=== PATIENT | female | born 1995 | race Caucasian/White ===

== ENCOUNTER → 2018-12-28 | Outpatient (CLI) | payer BC ==
[2018-12-28 15:37] LABS: EOS # 0.2 (0.04-0.40); EOS % 3.1 % (1.0-5.0); HEMATOCRIT 41.1 % (37.0-47.0); HEMOGLOBIN 13.4 g/dL (12.5-16.0); LYMPH# 1.5 (1.50-4.00); MEAN CELL VOLUME 93 fl (78-100); MEAN CORPUSCULAR HEMOGLOBIN 30 pg (27-31); MEAN CORPUSCULAR HGB CONC 33 g/dL (33-37); MEAN PLATELET VOLUME 9.7 fl (7.4-10.4); MONO # 0.3 (0.20-0.80); NEU # 3.4 (1.40-6.50); PLATELET COUNT 317 K/mm3 (130-400); RED BLOOD COUNT 4.43 M/mm3 (4.10-5.30); RED CELL DISTRIBUTION WIDTH 12.9 % (11.5-14.5); WHITE BLOOD COUNT 5.4 K/mm3 (4.8-10.8)
[2018-12-28 15:55] LABS: ALBUMIN 4.6 g/dL (3.5-5.0); POTASSIUM 4.4 mmol/L (3.5-5.1)
[2018-12-28 16:00] LABS: TOTAL BILIRUBIN 0.8 mg/dL (0.2-1.2)
[2018-12-28 16:03] LABS: CALCIUM 9.7 mg/dL (8.3-10.5)
[2018-12-28 16:04] LABS: TOTAL PROTEIN 7.3 g/dL (6.4-8.3)
== END ==
LOC: LAB 15:27
PROVIDERS: Internal Medicine
DX: Z00.00 Encounter for general adult medical examination without abnormal findings (principal)

== ENCOUNTER → 2019-01-28 | Outpatient (CLI) | payer BC | LOC: RAD 14:03 | DX: M79.671 Pain in right foot (principal); M79.672 Pain in left foot ==

== ENCOUNTER → 2019-02-09 | Outpatient (CLI) | payer BC | LOC: LAB 13:46 | DX: Z01.419 Encounter for gynecological examination (general) (routine) without abnormal findings (principal); N89.8 Other specified noninflammatory disorders of vagina ==

== ENCOUNTER → 2019-08-02 | Outpatient (CLI) | payer BC | LOC: RAD 08:15 | DX: N60.02 Solitary cyst of left breast (principal) ==

== ENCOUNTER → 2020-01-27 | Outpatient (CLI) | payer BC | LOC: RAD 14:38 | DX: M71.331 Other bursal cyst, right wrist (principal) ==

== ENCOUNTER → 2020-02-08 | Outpatient (CLI) | payer BC | LOC: RAD 07:45 | DX: M19.032 Primary osteoarthritis, left wrist (principal) ==

== ENCOUNTER → 2020-12-08 | Outpatient (CLI) | payer BC ==
[2020-12-08 14:48] LABS: BASO # 0.03 (0.02-0.10); EOS # 0.18 (0.04-0.40); EOS % 3.4 % (1.0-5.0); HEMATOCRIT 39.1 % (37.0-47.0); HEMOGLOBIN 13.3 g/dL (12.5-16.0); LYMPH# 1.68 (1.50-4.00); MEAN CELL VOLUME 92 fl (78-100); MEAN CORPUSCULAR HEMOGLOBIN 31 pg (27-31); MEAN CORPUSCULAR HGB CONC 34 g/dL (33-37); MEAN PLATELET VOLUME 9.2 fl (7.4-10.4); MONO # 0.41 (0.20-0.80); NEU # 2.92 (1.40-6.50); PLATELET COUNT 300 K/mm3 (130-400); RED BLOOD COUNT 4.24 M/mm3 (4.10-5.30); RED CELL DISTRIBUTION WIDTH 12.9 % (11.5-14.5); WHITE BLOOD COUNT 5.2 K/mm3 (4.8-10.8)
== END ==
LOC: LAB 14:37
PROVIDERS: Internal Medicine
DX: Z00.00 Encounter for general adult medical examination without abnormal findings (principal)

== ENCOUNTER → 2021-10-22 | Outpatient (CLI) | payer BC ==
[2021-10-22 15:56] LABS: BASO # 0.02 K/mm3 (0.02-0.10); EOS # 0.13 K/mm3 (0.04-0.40); EOS % 2.7 % (1.0-5.0); HEMATOCRIT 42.5 % (37.0-47.0); HEMOGLOBIN 14.2 g/dL (12.5-16.0); LYMPH# 1.27 K/mm3 (1.50-4.00); MEAN CELL VOLUME 93 fl (78-100); MEAN CORPUSCULAR HEMOGLOBIN 31 pg (27-31); MEAN CORPUSCULAR HGB CONC 33 g/dL (33-37); MEAN PLATELET VOLUME 9.1 fl (7.4-10.4); MONO # 0.29 K/mm3 (0.20-0.80); PLATELET COUNT 351 K/mm3 (130-400); RED BLOOD COUNT 4.57 M/mm3 (4.10-5.30); RED CELL DISTRIBUTION WIDTH 12.6 % (11.5-14.5); WHITE BLOOD COUNT 4.8 K/mm3 (4.8-10.8)
[2021-10-22 16:00] LABS: ALBUMIN 4.7 g/dL (3.5-5.0); POTASSIUM 3.9 mmol/L (3.5-5.1)
[2021-10-22 16:01] LABS: CALCIUM 9.7 mg/dL (8.3-10.5)
[2021-10-22 16:03] LABS: TOTAL PROTEIN 7.5 g/dL (6.4-8.3)
[2021-10-22 16:05] LABS: TOTAL BILIRUBIN 0.5 mg/dL (0.2-1.2)
== END ==
LOC: LAB 15:36
PROVIDERS: Internal Medicine
DX: Z00.00 Encounter for general adult medical examination without abnormal findings (principal); F90.9 Attention-deficit hyperactivity disorder, unspecified type

== ENCOUNTER → 2024-02-17 | Outpatient (CLI) | payer BC ==
[2024-02-17 16:02] LABS: BASO # 0.03 K/mm3 (0.02-0.10); EOS # 0.08 K/mm3 (0.04-0.40); EOS % 1.1 % (1.0-5.0); HEMOGLOBIN 15.2 g/dL (12.5-16.0); LYMPH# 1.54 K/mm3 (1.50-4.00); MEAN CELL VOLUME 96 fl (78-100); MEAN CORPUSCULAR HEMOGLOBIN 32 pg (27-31); MEAN CORPUSCULAR HGB CONC 33 g/dL (33-37); MEAN PLATELET VOLUME 9.7 fl (7.4-10.4); MONO # 0.37 K/mm3 (0.20-0.80); NEU # 5.14 K/mm3 (1.40-6.50); PLATELET COUNT 308 K/mm3 (130-400); RED BLOOD COUNT 4.81 M/mm3 (4.10-5.30); RED CELL DISTRIBUTION WIDTH 12.9 % (11.5-14.5); WHITE BLOOD COUNT 7.2 K/mm3 (4.8-10.8)
[2024-02-17 16:07] LABS: SODIUM 139 mmol/L (136-145)
[2024-02-17 16:08] LABS: ALBUMIN 4.9 g/dL (3.5-5.0)
[2024-02-17 16:09] LABS: CALCIUM 9.9 mg/dL (8.3-10.5)
[2024-02-17 16:10] LABS: GLUCOSE 76 mg/dL (65-105); TOTAL PROTEIN 7.7 g/dL (6.4-8.3)
[2024-02-17 16:11] LABS: CARBON DIOXIDE 23 mmol/L (22-29)
[2024-02-17 16:12] LABS: TOTAL BILIRUBIN 1.2 mg/dL (0.2-1.2)
[2024-02-17 16:15] LABS: AST-SGOT 24 U/L (5-34)
[2024-02-17 16:17] LABS: ALT/SGPT 21 U/L (0-55)
== END ==
LOC: LAB 15:51
PROVIDERS: Internal Medicine
DX: Z00.00 Encounter for general adult medical examination without abnormal findings (principal); N91.2 Amenorrhea, unspecified